=== PATIENT | female | born 1975 | race Caucasian/White ===

== ENCOUNTER 2017-05-05 21:52 | Emergency (ER) | payer BC ==
[~2017-05-05] VITALS: Ht 165.1 cm; Wt 55.9 kg
[2017-05-05 22:02] VITALS: BP 130/76; PULSE 100; RESP 18; TEMP 97.8; O2SAT 97
--- NOTE | 2017-05-05 22:17 | PD ---
HPI Chief Complaint: Cold / Flu Symptoms Time Seen by Provider: 22:17 Travel History International Travel<30 days: No Contact w/Intl Traveler<30days: No Traveled to known affect area: No History of Present Illness HPI 41-year-old female came to the emergency room with her with history of persistent cough for past 1 month. It started when she went on a cruise trip to [place] with the family. More than one family member including herself was tested positive for influenza A. She did not finish the Tamiflu course. Since then the cough has been going on. She went to an urgent care after coming back and was given Augmentin course. She finished a course of Augmentin but the cough persisted. She returned back to the urgent care and at this point she was started on steroid and was given inhaler. Patient says that the inhaler is not really helping but she started using her daughter's nebulizer. She was also recently started on Zithromax but since the cough continues she came here to be seen. The cough is somewhat productive where she is bringing out pale yellow color mucus. No history of fever. Vital signs were stable. Patient is not a smoker. [facility] Past Medical History Narrative Medical List of her past medical, surgical, social and family history is reviewed from the nursing note. LMP: 04/21/2017 Social History Tobacco Use: No Allergies-Medications (Allergen,Severity, Reaction): Coded Allergies: codeine (Verified Allergy, Mild, Hives, 05/05/17) Comments List of her allergies reviewed from the nursing note. Reported Meds & Prescriptions Reported Meds & Active Scripts Active Albuterol Neb (Albuterol Sulfate) 2.5 Mg/0.5 Ml Neb 2.5 Mg NEB Q6HR NEB Note: The Albuterol Sulfate Inhalation Solution is concentrated and must be diluted. Read complete instructions carefully before using. Reported Progesterone Micronized 100 Mg Cap 100 Mg PO DAILY Albuterol Neb (Albuterol Sulfate) 0.63 Mg/3 Ml Neb 0.63 Mg NEB Q4HR NEB PRN Zithromax (Azithromycin) 250 Mg Tab 250 Mg PO DIRECTED Take 2 tabs (500 mg) on day 1 then 1 tab daily x 4 days. Narrative Medication List of her home medications reviewed from the nursing note. Review of Systems Except as stated in HPI: all other systems reviewed are Neg Respiratory: Positive: Cough Physical Exam Narrative GENERAL: Awake, alert, no obvious distress SKIN: Focused skin assessment warm/dry. HEAD: Atraumatic. Normocephalic. EYES: Pupils equal and round. No scleral icterus. No injection or drainage. ENT: No nasal bleeding or discharge. Mucous membranes pink and moist. NECK: Trachea midline. No JVD. CARDIOVASCULAR: Regular rate and rhythm. No murmur appreciated. RESPIRATORY: No accessory muscle use. Coarse occasional crackles and reviewing GASTROINTESTINAL: Abdomen soft, non-tender, nondistended. Hepatic and splenic margins not palpable. MUSCULOSKELETAL: No obvious deformities. No clubbing. No cyanosis. No edema. NEUROLOGICAL: Awake and alert. No obvious cranial nerve deficits. Motor grossly within normal limits. Normal speech. PSYCHIATRIC: Appropriate mood and affect; insight and judgment normal. Data Data Last Documented VS Vital Signs Date Time Temp Pulse Resp B/P (MAP) Pulse Ox O2 Delivery O2 Flow Rate FiO2 05/05/17 22:20 97 Room Air 05/05/17 22:02 97.8 100 18 130/76 (94) Orders Orders Chest, Pa & Lat (05/05/17 ) Albuterol Neb (Albuterol Neb) (05/05/17 23:15) Ed Discharge Order (05/05/17 23:02) [facility] Medical Decision Making Medical Screen Exam Complete: Yes Emergency Medical Condition: Yes Medical Record Reviewed: Yes Differential Diagnosis Bronchitis, pneumonia, reactive airway disease Narrative Course 10:59 PM chest x-rays read negative. She will be discharged home on albuterol nebulizer prescription. Patient has been treated ad nauseam with steroid and antibiotic for this. I'll ask her to finish the course of the Zithromax. Procedures EKG Prior to Arrival: No Diagnosis Primary Impression: Bronchitis Additional Impression: Reactive airway disease Qualified Codes: J45.41 - Moderate persistent asthma with (acute) exacerbation Referrals: Primary Care Physician 1 week Additional Instructions: Finished a course of Zithromax. Do the nebulizer every 6 hours for next 1 week. If symptoms do not improve please follow-up with your primary care. You primary care should refer you to a dermatology sales representative. Med/Other Pt SpecificInfo: Prescription(s) given Scripts Albuterol Neb (Albuterol Neb) 2.5 Mg/0.5 Ml Neb 2.5 MG NEB Q6HR NEB, #30 BOX Note: The Albuterol Sulfate Inhalation Solution is concentrated and must be diluted. Read complete instructions carefully before using. Prov: Kang Brewer MD 05/05/17 Disposition: 01 DISCHARGE HOME Condition: Stable Kang Brewer MD May 05, 2017 22:17
[2017-05-05] MEDS ORDERED: PROG100C PO (22:19)
[2017-05-05] MEDS ORDERED: ALBU0.63 NEB (22:19)
[2017-05-05] MEDS ORDERED: ZITH250T PO (22:19)
--- NOTE | 2017-05-05 22:53 | RADRPT ---
EXAM DATE/TIME: 05/05/2017 22:34 [place] COMPARISON: No previous studies available for comparison. INDICATIONS : Cough. MEDICAL HISTORY : None. SURGICAL HISTORY : None. ENCOUNTER: Initial ACUITY: 1 month PAIN SCORE: 4/10 LOCATION: Bilateral chest FINDINGS: PA and lateral views of the chest demonstrate the lungs to be symmetrically aerated without evidence of mass, infiltrate or effusion. The cardiomediastinal contours are unremarkable. Osseous structure s are intact. CONCLUSION: No acute disease. Mata Gimenez MD on May 05, 2017 at 22:50 Board Certified Radiologist. This report was verified electronically.
[2017-05-05] MEDS ORDERED: ALBU.5I NEB (23:02)
[2017-05-05] MEDS ORDERED: RESP: ALBUTEROL 2.5 MG/3 ML NEB (SCH) NEB ONE (23:15)
== END 2017-05-05 23:28 | disposition home or self-care (01) ==
LOC: PHEFT 21:52
DX: J40 Bronchitis, not specified as acute or chronic (principal); J45.41 Moderate persistent asthma with (acute) exacerbation; Z88.5 Allergy status to narcotic agent; Z79.899 Other long term (current) drug therapy
CPT/HCPCS: 71046; 94664; 99283; J7613